=== PATIENT | male | born 1950 | race Caucasian/White ===

== ENCOUNTER 2019-12-09 19:50 | Emergency (ER) | payer MEDICARE ==
[~2019-12-09] VITALS: Ht 167.6 cm; Wt 63.5 kg
[~2019-12-09 19:50] MED LIST: AGGRENOX CAPSU1 EACH PO; DIOVAN320 MG PO; LISINOPRIL2.5 MG PO
[2019-12-09 20:17] LABS: ABSOLUTE NEUTROPHILS 2.6 thou/uL (1.4-8.2); BASOPHILS 0.8 % (0.0-2.0); EOSINOPHILS 2.1 % (0.0-3.0); HEMOGLOBIN 12.4 gm/dL (14.0-18.0); LYMPHOCYTES 42.5 % (24.0-44.0); MCH 34.6 pg (26.0-34.0); MCHC 34.5 g/dL (28.0-37.0); MCV 100.3 fL (80.0-100.0); MONOCYTES 11.7 % (1.0-8.0); PLATELET COUNT 205 thou/uL (150-400); POLYS 42.9 % (36.0-66.0); RBC 3.59 mil/uL (4.50-6.00); RDW 13.3 % (10.5-14.5)
[2019-12-09 20:27] LABS: CALCIUM 7.8 mg/dL (8.5-10.1); CREATININE 0.8 mg/dL (0.7-1.3); POTASSIUM 3.5 mmol/L (3.5-5.1)
[2019-12-09 20:29] LABS: APTT 27.3 Seconds (24.5-32.8); INR 1.1; PROTIME 11.1 Seconds (9.3-11.4)
[2019-12-09 23:34] VITALS: BP 103/67
--- NOTE | 2019-12-11 10:45 | EKG ---
[facility] [place] [address] ELECTROCARDIOGRAM REPORT Name: LUZ MARINA GROVE Room #: DEP [facility]#: [id number] Admission: 12/09/19 Attend Phys: Discharge: 12/09/19 Date of : 48 Report #: [id number] THIS REPORT FOR: cc: Jonel Davis MD, Steven A. MD Couchonnal, Luis F. MD ~ THIS REPORT FOR: //name// [facility] ED Test Date: 2019-12-09 Test Time: 19:55:30 Pat Name: LUZ MARINA GROVE Department: Room: Gender: Testing [facility] 1950 Requested By: Jacquelin Farrar Order Number: [id number] MD: Alexander Lepe Measurements Intervals [place] Rate: 60 P: 78 W[place]: 201 QRS: 71 QRSD: 85 T: 73 QT: 420 QTc: 420 Interpretive Statements Sinus rhythm Left atrial enlargement Compared to ECG 09/21/2009 13:31:42 No significant changes Electronically Signed On 12-11-2019 10:44:52 CDT by Alexander Lepe [email or web address] <ELECTRONICALLY SIGNED> By: Alexander Lepe MD 12/11/19 [id number] Alexander Lepe MD /EPI
== END 2019-12-09 23:35 | disposition home or self-care (01) ==
LOC: ER 19:50
PROVIDERS: Emergency Medicine
DX: S01.01XA Laceration without foreign body of scalp, initial encounter (principal); S51.012A Laceration without foreign body of left elbow, initial encounter; R42 Dizziness and giddiness; I10 Essential (primary) hypertension; Z86.73 Personal history of transient ischemic attack (TIA), and cerebral infarction without residual deficits; Z79.899 Other long term (current) drug therapy; Z79.82 Long term (current) use of aspirin; W19.XXXA Unspecified fall, initial encounter; Y93.89 Activity, other specified; Y92.098 Other place in other non-institutional residence as the place of occurrence of the external cause; Y99.8 Other external cause status

== ENCOUNTER 2019-12-10 13:04 | Emergency (ER) | payer MEDICARE ==
[~2019-12-10] VITALS: Ht 185.4 cm; Wt 63.5 kg
[2019-12-10 13:45] LABS: HEMATOCRIT 41.5 % (42.0-52.0); HEMOGLOBIN 14.2 gm/dL (14.0-18.0); MCH 34.6 pg (26.0-34.0); MCHC 34.2 g/dL (28.0-37.0); MCV 101.2 fL (80.0-100.0); PLATELET COUNT 236 thou/uL (150-400); RDW 13.3 % (10.5-14.5); WBC 7.6 thou/uL (4.0-11.0)
[2019-12-10 13:52] LABS: APTT 28.3 Seconds (24.5-32.8); INR 1.1; PROTIME 10.8 Seconds (9.3-11.4)
[2019-12-10 13:57] LABS: CALCIUM 8.6 mg/dL (8.5-10.1); CREATININE 0.9 mg/dL (0.7-1.3); POTASSIUM 3.8 mmol/L (3.5-5.1)
[2019-12-10 14:02] LABS: ALBUMIN 3.9 g/dL (3.4-5.0); DIRECT BILIRUBIN 0.2 mg/dL (<0.1-0.2); TOTAL BILIRUBIN 0.7 mg/dL (0.2-1.0); TOTAL PROTEIN 7.4 g/dL (6.4-8.2)
[2019-12-10 14:06] LABS: URINE BILIRUBIN NEGATIVE (Negative); URINE BLOOD NEGATIVE (Negative); URINE CLARITY CLEAR; URINE COLOR YELLOW; URINE GLUCOSE-RANDOM* NEGATIVE (Negative); URINE KETONES NEGATIVE (Negative); URINE LEUKOCYTES-REFLEX NEGATIVE (Negative); URINE NITRITE-REFLEX NEGATIVE (Negative); URINE PROTEIN (DIPSTICK) NEGATIVE (Negative); URINE SPECIFIC GRAVITY <= 1.005 (1.005-1.035); URINE UROBILINOGEN 0.2 E.U./dl (0.2-1.0)
[2019-12-10 14:19] LABS: ABSOLUTE NEUTROPHILS 4.7 thou/uL (1.4-8.2)
[2019-12-10 18:00] VITALS: BP 135/75
== END 2019-12-10 18:00 | disposition home or self-care (01) ==
LOC: ER 13:04
PROVIDERS: Emergency Medicine
DX: R20.2 Paresthesia of skin (principal); R26.89 Other abnormalities of gait and mobility; F10.10 Alcohol abuse, uncomplicated; I10 Essential (primary) hypertension; Z79.82 Long term (current) use of aspirin; Z79.899 Other long term (current) drug therapy